=== PATIENT | female | born 1985 | race Two or more races ===

== ENCOUNTER 2016-08-04 13:38 | Emergency (ER) | payer OTHER ==
[~2016-08-04] VITALS: Ht 162.6 cm; Wt 60.5 kg
[2016-08-04 13:40] VITALS: BP 125/83
== END 2016-08-04 15:30 | disposition home or self-care (01) ==
LOC: ED 14:09
DX: S60.221A Contusion of right hand, initial encounter (principal); X58.XXXA Exposure to other specified factors, initial encounter; Y93.89 Activity, other specified; Y92.89 Other specified places as the place of occurrence of the external cause; Y99.8 Other external cause status
CPT/HCPCS: 99284

== ENCOUNTER 2020-05-18 09:00 | Outpatient (CLI) | payer BC ==
[2020-05-18] MEDS ORDERED: CA C1TAB42 PO (10:04)
[2020-05-18] MEDS ORDERED: OMEG1CAP23 PO (10:04)
[2020-05-18] MEDS ORDERED: CHOL10003 PO (10:04)
[2020-05-18 10:18] LABS: ANION GAP 5 mmol/L (5-15); CALCIUM 8.8 mg/dL (8.5-10.1); CHLORIDE 106 mmol/L (98-107); CREATININE 0.94 mg/dL (0.55-1.02)
[2020-05-18 10:25] LABS: BASOPHILS % (AUTO) 1 % (0-1); EOSINOPHILS % (AUTO) 3 % (1-7); LYMPHOCYTES % (AUTO) 34 % (22-44); MEAN CORPUSCULAR HEMOGLOBIN 31.9 pg (27.0-34.8); MEAN CORPUSCULAR HGB CONC 33.8 g/dL (32.4-35.8); MONOCYTES % (AUTO) 9 % (2-9); NEUTROPHILS % (AUTO) 54 % (42-75); PLATELET COUNT 294 x10^3/uL (130-400); RED BLOOD COUNT 4.58 x10^6/uL (3.82-5.3); RED CELL DISTRIBUTION WIDTH 13.1 % (9.6-15.2)
[2020-05-18 10:28] LABS: MD NO
== END 2020-05-18 23:59 | disposition home or self-care (01) ==
LOC: STAR 09:00
PROVIDERS: ATTEND Obstetrics & Gynecology
DX: Z01.812 Encounter for preprocedural laboratory examination (principal); Z20.822 Contact with and (suspected) exposure to COVID-19; R10.2 Pelvic and perineal pain
CPT/HCPCS: 36415; 80048; 84702; 85025; U0003

== ENCOUNTER 2020-05-24 12:15 | Day surgery (SDC) | payer BC ==
[~2020-05-24] VITALS: Ht 160 cm; Wt 64.0 kg
[~2020-05-24 12:15] MED LIST: CA C1TAB42 PO; CHOL10003 PO; OMEG1CAP23 PO
[2020-05-24 12:50] LABS: HCG UR SG 1.024 (1.003-1.030)
[2020-05-24 13:00] VITALS: BP 126/87
[2020-05-24] MEDS ORDERED: CHLORHEXIDINE 15 ML UDC PO ONE (13:00)
[2020-05-24] MEDS ORDERED: LACTATED RINGERS 1,000 ML IV SCH (13:00)
[2020-05-24] MEDS ORDERED: MIDAZOLAM 1 MG/ML, 2ML ONE (13:20)
[2020-05-24] MEDS ORDERED: FENTANYL PF 100 MCG/2ML ONE (13:20)
[2020-05-24] MEDS ORDERED: FENTANYL PF 100 MCG/2ML IV PRN (13:30)
[2020-05-24] MEDS ORDERED: HYDROmorphone 1 MG/ML, 1ML INJ IVPush PRN (13:30)
[2020-05-24] MEDS ORDERED: PROMETHAZINE 25 MG/ML, 1ML IVPush PRN (13:30)
[2020-05-24] MEDS ORDERED: ONDANSETRON 2MG/ML, 2ML IVPush PRN (13:30)
[2020-05-24] MEDS ORDERED: DIAZEPAM 5 MG/ML, 2ML IVPush PRN (13:30)
[2020-05-24] MEDS ORDERED: HALOPERIDOL 5 MG/ML IV PRN (13:30)
[2020-05-24] MEDS ORDERED: METOPROLOL 1 MG/ML, 5ML IV PRN (13:30)
[2020-05-24] MEDS ORDERED: DIPHENHYDRAMINE 50 MG/ML, 1ML IVPush PRN (13:30)
[2020-05-24] MEDS ORDERED: MEPERIDINE/PF 25MG/0.5ML IVPush PRN (13:30)
[2020-05-24] MEDS ORDERED: ACETAMINOPHEN 325 MG TABLET PO PRN (13:30)
[2020-05-24] MEDS ORDERED: METOCLOPRAMIDE 5 MG/ML, 2ML IVPush PRN (13:30)
[2020-05-24] MEDS ORDERED: hydrALAzine 20 MG/ML, 1ML IV PRN (13:30)
[2020-05-24] MEDS ORDERED: OXYcodone 5 MG/5 ML ORAL.SOL UDC PO PRN (13:30)
[2020-05-24] MEDS ORDERED: EPHEDRINE 50 MG/ML, 1ML IVPush PRN (13:30)
[2020-05-24] MEDS ORDERED: LABETALOL 5MG/ML, 20ML IV PRN (13:30)
[2020-05-24] MEDS ORDERED: EPINEPHRINE 1 MG/ML, 1ML ONE (13:51)
[2020-05-24] MEDS ORDERED: BUPIVACAINE/PF 0.25% ONE (13:51)
[2020-05-24] MEDS ORDERED: PHENYLEPHRINE 10 MG/ML ONE (14:06)
[2020-05-24] MEDS ORDERED: KETOROLAC 30 MG/1 ML ONE (14:06)
[2020-05-24] MEDS ORDERED: SUCCINYLCHOLINE 20 MG/ML, 10ML ONE (14:06)
[2020-05-24] MEDS ORDERED: ONDANSETRON 2MG/ML, 2ML ONE (14:06)
[2020-05-24] MEDS ORDERED: SUGAMMADEX 200 MG/2 ML IVPush ONE (14:06)
[2020-05-24] MEDS ORDERED: ROCURONIUM 10 MG/ML,10ML ONE (14:06)
[2020-05-24] MEDS ORDERED: DEXAMETHASONE 4 MG/ML, 1ML ONE (14:06)
[2020-05-24] MEDS ORDERED: PROPOFOL 10 MG/ML, 20ML ONE (14:06)
[2020-05-24] MEDS ORDERED: MEPERIDINE/PF 25MG/ML,1ML ONE (14:55)
[2020-05-24] MEDS ORDERED: ACETAMINOPHEN 650 MG/20.3 ML UDC ONE (15:18)
[2020-05-24] MEDS ORDERED: OXYcodone 5 MG/5 ML ORAL.SOL UDC ONE (15:18)
== END 2020-05-24 16:51 | disposition home or self-care (01) ==
LOC: OUT 12:15
PROVIDERS: ATTEND Obstetrics & Gynecology
DX: Z30.2 Encounter for sterilization (principal); N83.8 Other noninflammatory disorders of ovary, fallopian tube and broad ligament; Z83.3 Family history of diabetes mellitus; Z82.49 Family history of ischemic heart disease and other diseases of the circulatory system
CPT/HCPCS: 58670; 81025; 88302; J0171; J0330; J1100; J1885; J2175; J2250; J2370; J2405; J2704; J3010; J7120